=== PATIENT | male | born 1990 | race Caucasian/White ===

== ENCOUNTER 2024-09-20 11:20 | Outpatient (AMB) | payer BC, SELFPAY ==
[2024-09-20 13:27] VITALS: BP 130/90; PULSE 89; O2SAT 98; BMI 41.4
--- NOTE | 2024-09-20 13:27 | AM.OFFWIN_ITS ---
Intake Vital Signs 09/20/24 13:27 Height 5 ft 8 in Weight 272 lb BMI 41.4 BP 130/90 H Blood Pressure Location Rt brachial Position Sitting Pulse 89 Pulse Source Pulse Oximeter Pulse Oximetry (%) 98 Oxygen Delivery Method Room Air Intake Visit Reasons: EP-rt foot pain Intake Note: Patient here for right foot pain that started Friday. no known injuries. Patient Tobacco Use Status: Never used Tobacco Allergies No Known Allergies Allergy (Verified 09/20/24 13:28) Do you need a note to return to daycare/school/sports/work: No HPI HPI Comments History of Present Illness Details History of Present Illness The patient is a 33-year-old male presenting with right foot pain, specifically the right great toe. This issue began on Friday evening and has persisted since, with no clear inciting incident. The patient reports pain when walking or bending the great toe, described as pressure and swelling, primarily affecting t he right great toe. Despite the swelling, the foot does not hurt to the touch but feels tender when squeezed or massaged. The patient mentions that the pain is exacerbated by walking and worsened by prolonged periods on his feet, though rest and relaxation provide some temporary relief. He denies any known injury, though he admits to occasionally sitting in positions that might contribute to discomfort. There's no known family history of gout, and previous attempts to alleviate symptoms with ibuprofen have been unsuccessful. The patient has not previously sought medical evaluation or undergone imaging for this problem, although he expresses concern given the recurring nature of the pain over the past year. The patient has experimented with anti-inflammatory medications but reports limited success, noting that Aleve was , and ibuprofen offered little relief. [facility] Social History Patient Tobacco Use Status: Never used Tobacco Physical Exam Vital Signs: Last Vital Signs Pulse 89 09/20/24 13:27 BP 130/90 H 09/20/24 13:27 Pulse Ox 98 09/20/24 13:27 Oxygen Delivery Method Room Air 09/20/24 13:27 BMI result Body Mass Index 41.4 Const General: cooperative, healthy appearing, comfortable and no acute distress Orientation/consciousness: patient oriented x3 Limitations: no limitations HEENT Head: Yes normal to inspection Resp Effort & Inspection: normal respiratory effort and able to speak in complete sentences Neuro General: patient oriented x3 Extrem Right lower extremity: foot Details: normal capillary refill, normal to inspection, tenderness Location: of the great toe (with flexion) Location: at the MTP joint; not of the calcaneus, not of the lateral foot, not of the medial foot, not of the mid foot and not of the base of the 5th metatarsal, toes with normal ROM, no edema, tendon exam Details: active flexion normal and active extension normal and motor-sensory exam Details: light-touch normal; no unusual warmth, no abrasion, no laceration and no ecchymosis Assessment & Plan Assessment & Plan (1) Great toe pain: Code(s): M79.676 - Pain in unspecified toe(s) Qualifiers: Laterality: right Qualified Code(s): M79.674 - Pain in right toe(s) Plan: - Initiate a diagnostic x-ray of the right foot to rule out possible fractures or signs of osteoarthritis, though he is a bit young for this diagnosis. - Recommend rest, ice application, and administration of 600 mg ibuprofen every six hours, or naproxen every 12 hours for anti-inflammatory management. - If the x-ray results are negative for acute fracture or dislocation and symptoms persist, the patient should consult with his primary care physician for a possible referral to an computer technical support specialist. This may include further imaging or a comprehensive assessment to explore other conditions. - No immediate follow-up scheduled in urgent care unless x-ray results necessitate further urgent care intervention. Follow up with the primary care provider is advised based on imaging outcomes and symptom progression. Patient was informed and verbally consented to the use of an ambient scribe for clinic note documentation during this visit. Orders: Orders XR foot RT min 3V Today M79.676 - Pain in unspecified toe(s) Coding Level of Care Code New Pt Level 4 (81279) Diagnoses Pain of right great toe M79.674 Laterality: right
== END 2024-09-20 13:51 | disposition home or self-care (01) ==
PROVIDERS: Visit Provider Physician Assistant
DX: M79.674 Pain in right toe(s) (principal)

== ENCOUNTER 2024-09-20 11:20 | Outpatient (REF) | payer BC, SELFPAY ==
--- NOTE | ~2024-09-20 | XR_ITS ---
EXAMINATION: XR FOOT, RIGHT CLINICAL INFORMATION: M79.676 - Pain in unspecified toe(s) COMPARISON: None available. TECHNIQUE: AP, lateral, and oblique views of the right foot. FINDINGS: The bones and soft tissues are normal. No fracture. Alignment is anatomic. Joint spaces are maintained. XR/XR foot RT min 3V IMPRESSION: Normal right foot. Electronically signed by: Alberto Alfaro MD 09/20/2024 03:15 PM [facility]
== END 2024-09-20 11:21 | disposition home or self-care (01) ==
LOC: HO.HMGCX 11:20
PROVIDERS: Visit Provider Physician Assistant
DX: M79.671 Pain in right foot (principal)
CPT/HCPCS: 73630